=== PATIENT | female | born 1955 | race Caucasian/White ===

== ENCOUNTER 2018-02-21 21:04 | Emergency (ER) | payer OTHER ==
[~2018-02-21] VITALS: Ht 160 cm; Wt 71.0 kg
[2018-02-21] MEDS ORDERED: cholesterol med PO (21:38)
[2018-02-21] MEDS ORDERED: SILVER NITRATE APPLICATOR 1 EA STICK TP ONE (21:45)
[2018-02-21 21:50] VITALS: BP 134/74
[2018-02-21] MEDS: PHENYLEPHRINE HCL 0.25% 15 ML NASAL SPRAY NASAL ONE ×2 (21:50→22:21)
== END 2018-02-21 22:22 | disposition home or self-care (01) ==
LOC: EMS 21:06
DX: R04.0 Epistaxis (principal)
CPT/HCPCS: 30901; 99284; Z7610